=== PATIENT | male | born 1940 | race Caucasian/White ===

== ENCOUNTER 2022-10-16 09:50 | Emergency (ER) | payer BC, MEDICARE, OTHER ==
[2022-10-16 10:27] LABS: BASOPHILS ABSOLUTE AUTO 0.05 10^3/uL (0.00-0.10); BASOPHILS PERCENT AUTO 0.6 % (0.0-1.0); EOSINOPHILS ABSOLUTE AUTO 0.12 10^3/uL (0.10-0.30); EOSINOPHILS PERCENT AUTO 1.4 % (1.0-3.0); HEMATOCRIT 45.5 % (40.0-52.0); HEMOGLOBIN 15.5 g/dL (13.0-17.0); IMMATURE GRAN ABSOLUTE AUTO 0.01 10^3/uL (0.00-0.50); IMMATURE GRAN PERCENT AUTO 0.1 % (0.0-5.0); LYMPHOCYTES ABSOLUTE AUTO 1.09 10^3/uL (1.00-4.00); LYMPHOCYTES PERCENT AUTO 12.7 % (20.0-40.0); MEAN CORPUSCULAR HEMOGLOBIN 32.4 pg (27.0-31.0); MEAN CORPUSCULAR HGB CONC 34.1 g/dL (32.0-36.0); MEAN CORPUSCULAR VOLUME 95.2 fL (82.0-92.0); MEAN PLATELET VOLUME 9.1 fL (7.4-10.4); MONOCYTES ABSOLUTE AUTO 1.06 10^3/uL (0.10-0.80); MONOCYTES PERCENT AUTO 12.4 % (2.0-8.0); NEUTROPHILS ABSOLUTE AUTO 6.23 10^3/uL (2.50-7.00); NEUTROPHILS PERCENT AUTO 72.8 % (50.0-70.0); PLATELET COUNT,PLT 218 10^3/uL (150-400); RED BLOOD CELL COUNT 4.78 10^6/uL (4.50-6.00); RED CELL DISTRIBUTION WIDTH 12.2 % (11.5-14.5); WHITE BLOOD CELL COUNT,WBC 8.56 10^3/uL (5.00-10.00)
[2022-10-16 10:49] LABS: ANION GAP 14.3 mmol/L (5-15); CALCIUM 9.1 mg/dL (8.7-10.3); CARBON DIOXIDE,CO2 26.8 mmol/L (21.0-32.0); CREATININE 1.29 mg/dL (0.51-1.17); EST CRCL DRUG DOSING (CG) 48.64 mL/min; POTASSIUM,K 4.1 mmol/L (3.5-5.1); URIC ACID 5.5 mg/dL (2.6-7.2)
== END 2022-10-16 11:35 | disposition home or self-care (01) ==
LOC: KA.ED 09:50 → MERGE 09:50 → KA.ED 11:35
DX: S90.121A Contusion of right lesser toe(s) without damage to nail, initial encounter (principal); W22.09XA Striking against other stationary object, initial encounter
CPT/HCPCS: 36415; 73630-RT; 80048; 84550; 85025; 99283